=== PATIENT | female | born 1980 | race Caucasian/White ===

== ENCOUNTER 2018-11-07 17:37 | Emergency (ER) | payer BC ==
[~2018-11-07] VITALS: Ht 160 cm; Wt 88.0 kg
--- NOTE | 2018-11-07 18:40 | NUR ---
JEWEL GRINDER: PT TO [facility] [address] FROM [place] AT THIS TIME
[2018-11-07 18:50] LABS: BASOPHILS # (AUTO) 0.03 x10^3/uL (0-0.1); BASOPHILS % (AUTO) 0 % (0-1); EOSINOPHILS # (AUTO) 0.06 x10^3/uL (0-0.4); EOSINOPHILS % (AUTO) 1 % (1-7); LYMPHOCYTES # (AUTO) 1.73 x10^3/uL (1-3.4); LYMPHOCYTES % (AUTO) 18 % (22-44); MD NO; MEAN CORPUSCULAR HGB CONC 33.4 g/dL (32.4-35.8); MEAN CORPUSCULAR VOLUME 83.8 fL (80-100); MEAN PLATELET VOLUME 8.9 fL (7.4-10.4); MONOCYTES # (AUTO) 0.57 x10^3/uL (0.2-0.8); MONOCYTES % (AUTO) 6 % (2-9); NEUTROPHILS # (AUTO) 7.44 x10^3/uL (1.8-6.8); NEUTROPHILS % (AUTO) 76 % (42-75); PLATELET COUNT 292 x10^3/uL (130-400); RED BLOOD COUNT 5.17 x10^6/uL (3.82-5.3); RED CELL DISTRIBUTION WIDTH 15.3 % (9.6-15.2)
--- NOTE | 2018-11-07 18:55 | NUR ---
Pt presents for HTN. Pt states was dx'd with HTN today. Pt states had DE SANTIAGO earlier but took excedrin and denies pain at this time. Denies CP, SOB. NAD at this time.
[2018-11-07 18:59] LABS: ANION GAP 6 mmol/L (5-15); CALCIUM 9.4 mg/dL (8.5-10.1); CHLORIDE 103 mmol/L (98-107); CREATININE 0.71 mg/dL (0.55-1.02)
[2018-11-07] MEDS ORDERED: IRBESARTAN 150 MG TABLET PO ONE (19:30)
[2018-11-07] MEDS ORDERED: SODIUM CHLORIDE FLUSH 10ML SYR IVF ONE (20:30)
[2018-11-07] MEDS ORDERED: LABETALOL 5MG/ML, 20ML IVPush ONE (20:30)
--- NOTE | 2018-11-07 21:06 | NUR ---
Report to Byron EATON.
--- NOTE | 2018-11-07 21:11 | NUR ---
PT. MEDICATED PER OCT. VS UPDATED PRIOR TO THIS. PT. HAS MONITORS IN PLACE. CALL LIGHT IN REACH. FAMILY AT FOR SUPPORT. NADN. DENIES PAIN. REPORTS FEELING RELAXED.
[2018-11-07 21:59] VITALS: BP 116/83
== END 2018-11-07 22:01 | disposition home or self-care (01) ==
LOC: ED 21:50
DX: I10 Essential (primary) hypertension (principal)
CPT/HCPCS: 36415; 80048; 82040; 85025; 93005; 96374